=== PATIENT | male | born 1990 | race Hispanic/Latino ===

== ENCOUNTER 2020-03-13 04:08 | Emergency (ER) | payer SELFPAY ==
[2020-03-13 04:37] LABS: Absolute Lymphocytes (CBC) 2.5 K/uL (0.7-4.9); Basophils % 0.6 % (0-1.3); Hematocrit 41.7 % (39.6-49.0); MPV 9.3 fL (7.6-11.3); RBC Red Blood Cell Count 5.11 M/uL (4.33-5.43)
[2020-03-13] MEDS ORDERED: ASPIRIN EC 81 MG TAB PO ONE (04:48)
[2020-03-13] MEDS ORDERED: NA CHLORIDE 0.9% 1,000 ML ONE (04:48)
[2020-03-13 05:01] LABS: ALT/SGPT 43 U/L (12-78); AST/SGOT 17 U/L (15-37); Albumin 3.8 g/dL (3.4-5.0); Alkaline Phosphatase 101 U/L (45-117); BUN Blood Urea Nitrogen 9 mg/dL (7-18); Bicarbonate 24 mmol/L (21-32); Bilirubin Direct < 0.1 mg/dL (0-0.2); Bilirubin Total 0.2 mg/dL (0.2-1.0); Glucose Level 110 mg/dL (74-106); NT PRO-BNP 75 pg/mL (<125); Potassium 3.5 mmol/L (3.5-5.1); Protein, Total 7.8 g/dL (6.4-8.2); Sodium Level 140 mmol/L (136-145); Troponin (Emerg Dept Use Only) < 0.02 ng/mL (0.0-0.045)
--- NOTE | 2020-03-13 05:03 | EDPHYS ---
Physician Documentation [facility] Name: Jorge Paredes Age: 30 yrs Sex: Male : 1990 Arrival Date: 03/13/2020 Time: 04:10 Bed 7 Private MD: ED Physician Levi Jorgensen HPI: 03/13 04:31 This 30 yrs old Male presents to ER via EMS with complaints of CP AND ANXIOUS. kip 04:31 The patient presents to the emergency department with anxiety. Onset: The kip symptoms/episode began/occurred just prior to arrival. Past psychiatric history: Prior diagnosis: no previous psychiatric diagnosis known. The patient or guardian reports chest pain that is located primarily in the anterior chest wall, left. PLAYING GAME ON TV, GOT ANXIOUS. The pain does not radiate. Associated signs and symptoms: The patient has no apparent associated signs or symptoms. Historical: - Allergies: 04:15 Wellbutrin; rv - Home Meds: 04:15 None [Active]; rv - PMHx: 04:15 None; rv - PSHx: 04:15 None; rv - Immunization history:: Adult Immunizations unknown. - Social history:: Smoking status: Patient uses street drugs, marijuana. - Family history:: not pertinent. ROS: 04:31 Constitutional: Negative for fever, chills, and weight loss, Eyes: Negative for injury, kip pain, redness, and discharge, ENT: Negative for injury, pain, and discharge, Neck: Negative for injury, pain, and swelling, Respiratory: Negative for shortness of breath, cough, wheezing, and pleuritic chest pain, Abdomen/GI: Negative for abdominal pain, nausea, vomiting, diarrhea, and constipation, Back: Negative for injury and pain, : Negative for injury, bleeding, discharge, and swelling, MS/Extremity: Negative for injury and deformity, Skin: Negative for injury, rash, and discoloration, Neuro: Negative for headache, weakness, numbness, tingling, and seizure, Psych: Negative for depression, anxiety, suicide ideation, homicidal ideation, and hallucinations, Allergy/Immunology: Negative for hives, rash, and allergies, Endocrine: Negative for neck swelling, polydipsia, polyuria, polyphagia, and marked weight changes, Hematologic/Lymphatic: Negative for swollen nodes, abnormal bleeding, and unusual bruising. 04:31 Cardiovascular: Positive for chest pain. Exam: 04:31 Constitutional: This is a well developed, well nourished patient who is awake, alert, kip and in no acute distress. Head/Face: Normocephalic, atraumatic. Eyes: Pupils equal round and reactive to light, extra-ocular motions intact. Lids and lashes normal. Conjunctiva and sclera are non-icteric and not injected. Cornea within normal limits. Periorbital areas with no swelling, redness, or edema. ENT: Nares patent. No nasal discharge, no septal abnormalities noted. Tympanic membranes are normal and external auditory canals are clear. Oropharynx with no redness, swelling, or masses, exudates, or evidence of obstruction, uvula midline. Mucous membranes moist. Neck: Trachea midline, no thyromegaly or masses palpated, and no cervical lymphadenopathy. Supple, full range of motion without nuchal rigidity, or vertebral point tenderness. No Meningismus. Chest/axilla: Normal chest wall appearance and motion. Nontender with no deformity. No lesions are appreciated. Cardiovascular: Regular rate and rhythm with a normal S1 and S2. No gallops, murmurs, or rubs. Normal PMI, no JVD. No pulse deficits. Respiratory: Lungs have equal breath sounds bilaterally, clear to auscultation and percussion. No rales, rhonchi or wheezes noted. No increased work of breathing, no retractions or nasal flaring. Abdomen/GI: Soft, non-tender, with normal bowel sounds. No distension or tympany. No guarding or rebound. No evidence of tenderness throughout. Back: No spinal tenderness. No costovertebral tenderness. Full range of motion. Skin: Warm, dry with normal turgor. Normal color with no rashes, no lesions, and no evidence of cellulitis. MS/ Extremity: Pulses equal, no cyanosis. Neurovascular intact. Full, normal range of motion. Neuro: Awake and alert, GCS 15, oriented to person, place, time, and situation. Cranial nerves II-XII grossly intact. Motor strength 5/5 in all extremities. Sensory grossly intact. Cerebellar exam normal. Normal gait. Psych: Awake, alert, with orientation to person, place and time. Behavior, mood, and affect are within normal limits. 04:31 Musculoskeletal/extremity: DVT Exam: No signs of deep vein thrombosis. no pain, no swelling, no tenderness, negative Homans' sign noted on exam, no appreciated bluish discoloration, no erythema, no increased warmth. 04:38 ECG was reviewed by the Attending Physician. [facility] Vital Signs: 04:10 BP 129 / 82; Pulse 102; Resp 18; Temp 98.8; Pulse Ox 98% ; Weight 117.93 kg; Height 6 rv ft. 1 in. (185.42 cm); Pain 0/10; 05:15 BP 139 / 78; Pulse 88; Resp 20; Pulse Ox 100% on R/A; lp1 04:10 Body Mass Index 34.30 (117.93 kg, 185.42 cm) rv MDM: 04:11 Patient medically screened. kip 04:33 Differential diagnosis: drug withdrawal. acute psychotic break, depression, abnormal [facility] EKG, acute myocardial infarction, acute pericarditis, anxiety, chest wall pain, congestive heart failure cholecystitis, Cholelithiasis. Differential Diagnosis. HEART Score: History: Slightly Suspicious (0), ECG: Normal (0), Age: < or = 45 years (0), Risk Factors: No Risk Factors Known (0), Troponin: < or = 1 x Normal Limit (0). The patient's deep vein thrombosis risk score was calculated as follows: Total Score: 0. This patient was found to be at low risk for a deep vein thrombosis by using the Well's assessment criteria. The patient's pulmonary embolism risk score was calculated as follows: Total Score: 0-2 points. This patient was found to be at low risk for a pulmonary embolism by using the Well's assessment criteria. SERAFIN Risk Score: TOTAL SCORE = 0. Data reviewed: vital signs, nurses notes, lab test result(s), EKG, radiologic studies, plain films. Data interpreted: adobe architect: rate is 102 beats/min, rhythm is regular, Pulse oximetry: on room air is 98 %. Test interpretation: by ED physician or midlevel provider: ECG, plain radiologic studies. Counseling: I had a detailed discussion with the patient and/or guardian regarding: the historical points, exam findings, and any diagnostic results supporting the discharge/admit diagnosis, lab results, radiology results, the need for outpatient follow up, for definitive care, a lumber material handler, a family practitioner. 03/13 04:12 Order name: Basic Metabolic Panel [facility] 03/13 04:12 Order name: CBC with Diff; Complete Time: 05:02 [facility] 03/13 04:12 Order name: LFT's [facility] 03/13 04:12 Order name: Magnesium; Complete Time: 05:02 [facility] 03/13 04:12 Order name: NT PRO-BNP; Complete Time: 05:02 [facility] 03/13 04:12 Order name: Troponin (emerg Dept Use Only); Complete Time: 05:02 [facility] 03/13 04:12 Order name: XRAY Chest (1 view) [facility] 03/13 04:12 Order name: EKG; Complete Time: 04:13 [facility] 03/13 04:12 Order name: UDS [facility] 03/13 04:13 Order name: Basic Metabolic Panel; Complete Time: 05:02 EDMS 03/13 04:13 Order name: Liver (Hepatic) Function; Complete Time: 05:02 EDDE 03/13 05:13 Order name: Urine Dipstick--Ancillary (enter results) 03/13 04:12 Order name: Cardiac monitoring; Complete Time: 04:29 [facility] 03/13 04:12 Order name: EKG - Nurse/Tech; Complete Time: 04:39 [facility] 03/13 04:12 Order name: IV Saline Lock; Complete Time: 04:39 [facility] 03/13 04:12 Order name: Labs collected and sent; Complete Time: 04:39 [facility] 03/13 04:12 Order name: O2 Per Protocol; Complete Time: 04:39 [facility] 03/13 04:12 Order name: O2 Sat Monitoring; Complete Time: 04:39 [facility] EC:38 Rate is 91 beats/min. Rhythm is regular. QRS [place] is Normal. ND interval is normal. QRS kip interval is normal. QT interval is normal. No Q waves. T waves are Normal. No ST changes noted. Clinical impression: NSR w/ Non-specific ST/T Changes and No evidence of ischemia. Interpreted by me. Reviewed by me. Administered Medications: 04:39 Drug: Aspirin 81 mg Route: PO; lp1 05:22 Follow up: Response: No adverse reaction lp1 04:39 Drug: NS 0.9% 1000 ml Route: IV; Rate: 125 ml/hr; Site: right antecubital; lp1 05:32 Follow up: IV Status: IV converted to saline lock lp1 Disposition: 03/13/20 05:03 Discharged to Home. Impression: Chest pain, unspecified, Abuse of non-psychoactive substances. - Condition is Stable. - Discharge Instructions: Nonspecific Chest Pain, Nonspecific Chest Pain, [id number], Aspirin and Your Heart. - Prescriptions for Pepcid 20 mg Oral Tablet - take 1 tablet by ORAL route every 12 hours for 10 days; 20 tablet. - Medication Reconciliation Form, Thank You Letter, Antibiotic Education, Prescription Opioid Use form. - Follow up: Private Physician; When: 2 - 3 days; Reason: Recheck today's complaints, Continuance of care, Re-evaluation by your physician. Follow up: Sandeep Arcos; When: 2 - 3 days; Reason: Recheck today's complaints, Continuance of care, Re-evaluation by your physician. - Problem is new. - Symptoms have improved. Signatures: Dispatcher [employer] EDDE Levi Jorgensen MD MD cha Pena, Laura, RN RN lp1 Bill Gifford RN RN rv Corrections: (The following items were deleted from the chart) 05:32 05:03 03/13/2020 05:03 Discharged to Home. Impression: Chest pain, unspecified; Abuse lp1 of non-psychoactive substances. Condition is Stable. Discharge Instructions: Nonspecific Chest Pain, Nonspecific Chest Pain, [id number], Aspirin and Your Heart. Prescriptions for Pepcid 20 mg Oral Tablet - take 1 tablet by ORAL route every 12 hours for 10 days; 20 tablet. and Forms are Medication Reconciliation Form, Thank You Letter, Antibiotic Education, Prescription Opioid Use. Follow up: Private Physician; When: 2 - 3 days; Reason: Recheck today's complaints, Continuance of care, Re-evaluation by your physician. Follow up: Sandeep Arcos; When: 2 - 3 days; Reason: Recheck today's complaints, Continuance of care, Re-evaluation by your physician. Problem is new. Symptoms have improved. kip
--- NOTE | 2020-03-13 05:03 | ER ---
Nurse's Notes [facility] Name: Jorge Paredes Age: 30 yrs Sex: Male : 1990 Arrival Date: 03/13/2020 Time: 04:10 Bed 7 Private MD: Diagnosis: Chest pain, unspecified;Abuse of non-psychoactive substances Presentation: 03/13 04:10 Chief complaint: EMS states: PATIENT HAVE USED MARIJUANA SIX HOURS PRIOR TO COMPLAINING rv CHEST TIGHTNESS. WITH HISTORY OF ANXIETY AND BIPOLAR DISORDER. DENIES NAUSEA AND VOMITING. Coronavirus screen: Client denies travel out of the [place] in the last 14 days. Ebola Screen: No symptoms or risks identified at this time. Initial Sepsis Screen: Does the patient meet any 2 criteria? No. Patient's initial sepsis screen is negative. Does the patient have a suspected source of infection? No. Patient's initial sepsis screen is negative. Risk Assessment: Do you want to hurt yourself or someone else? Patient reports no desire to harm self or others. Onset of symptoms was March 13, 2020 at 03:30. 04:10 Method Of Arrival: EMS: [facility] rv 04:10 Acuity: LILLY 3 rv Triage Assessment: 04:15 General: Appears uncomfortable, Behavior is anxious. Pain: Denies pain. EENT: No signs rv and/or symptoms were reported regarding the EENT system. Neuro: Level of Consciousness is awake, alert, obeys commands, Oriented to person, place, time, situation. Cardiovascular: Rhythm is sinus tachycardia. Respiratory: Airway is patent Respiratory effort is even, unlabored, Breath sounds are clear bilaterally. Derm: Skin is healthy with good turgor. Historical: - Allergies: 04:15 Wellbutrin; rv - Home Meds: 04:15 None [Active]; rv - PMHx: 04:15 None; rv - PSHx: 04:15 None; rv - Immunization history:: Adult Immunizations unknown. - Social history:: Smoking status: Patient uses street drugs, marijuana. - Family history:: not pertinent. Screenin:16 Abuse screen: Denies threats or abuse. Denies injuries from another. Nutritional rv screening: No deficits noted. Tuberculosis screening: No symptoms or risk factors identified. Fall Risk None identified. Assessment: 04:15 General: Appears in no apparent distress. Behavior is calm, cooperative, appropriate lp1 for age. Pain: Complains of pain in back and chest Pain currently is 2 out of 10 on a pain scale. Quality of pain is described as pressure. Neuro: Level of Consciousness is awake, alert, obeys commands, Oriented to person, place, time, situation, Moves all extremities. Full function Gait is steady. Cardiovascular: Patient's skin is warm and dry. Rhythm is sinus rhythm. Respiratory: Respiratory effort is even, unlabored, Respiratory pattern is regular, symmetrical, Breath sounds are clear bilaterally. GI: Abdomen is non-distended. : No signs and/or symptoms were reported regarding the genitourinary system. EENT: No signs and/or symptoms were reported regarding the EENT system. Derm: Skin is pink, warm \T\ dry. Musculoskeletal: No deficits noted. 05:00 Reassessment: Patient appears in no apparent distress at this time. Patient is alert, lp1 oriented x 3, equal unlabored respirations, skin warm/dry/pink. Patient states feeling better. Vital Signs: 04:10 BP 129 / 82; Pulse 102; Resp 18; Temp 98.8; Pulse Ox 98% ; Weight 117.93 kg; Height 6 rv ft. 1 in. (185.42 cm); Pain 0/10; 05:15 BP 139 / 78; Pulse 88; Resp 20; Pulse Ox 100% on R/A; lp1 04:10 Body Mass Index 34.30 (117.93 kg, 185.42 cm) rv ED Course: 04:10 Patient arrived in ED. rv 04:11 Levi Jorgensen MD is Attending Physician. kip 04:14 Triage completed. rv 04:14 Anjelica Middleton, RN is Primary Nurse. lp1 04:16 Arm band placed on right wrist. Patient placed in the treatment room, on a stretcher, rv Patient notified of wait time. 04:16 Patient has correct armband on for positive identification. clinical research monitor on. Pulse rv ox on. NIBP on. 04:20 Maintain EMS IV. Dressing intact. Good blood return noted. Site clean \T\ dry. Gauge \T\ lp 1 site: 20 g in R AC. 04:28 XRAY Chest (1 view) In Process Unspecified. EDMS 04:43 Urine collected: clean catch specimen, clear. lp1 05:03 Baradhi, Sandeep, MD is Referral Physician. [facility] 05:27 No provider procedures requiring assistance completed. IV discontinued, No lp1 redness/swelling at site. Pressure dressing applied. Administered Medications: 04:39 Drug: Aspirin 81 mg Route: PO; lp1 05:22 Follow up: Response: No adverse reaction lp1 04:39 Drug: NS 0.9% 1000 ml Route: IV; Rate: 125 ml/hr; Site: right antecubital; lp1 05:32 Follow up: IV Status: IV converted to saline lock lp1 Outcome: 05:03 Discharge ordered by . [facility] 05:27 Discharged to home ambulatory. lp1 05:27 Condition: good 05:27 Discharge instructions given to patient, Instructed on discharge instructions, follow up and referral plans. Demonstrated understanding of instructions, follow-up care, Prescriptions given X 1. 05:32 Patient left the ED. lp1 Signatures: Dispatcher [employer] EDLevi Barnard MD MD cha Pena, Laura, RN RN lp1 Bill Gifford RN RN rv
[2020-03-13 05:19] LABS: Urine Blood NEGATIVE (NEG); Urine Glucose NEGATIVE (NEG); Urine Protein NEGATIVE (NEG); Urine Specific Gravity 1.025 (1.005-1.030); Urine pH 5.5 (5.0-7.0)
[2020-03-13 05:32] LABS: Barbiturates NEGATIVE (NEGATIVE); Benzodiazepines NEGATIVE (NEGATIVE); Cocaine NEGATIVE (NEGATIVE); METHAMPHETAM NEGATIVE (NEGATIVE); Methadone NEGATIVE (NEGATIVE); Opiates NEGATIVE (NEGATIVE); Phencyclidine NEGATIVE (NEGATIVE); THC Cannibis POSITIVE (NEGATIVE)
[2020-03-13 05:39] VITALS: TEMP 98.8
[2020-03-13 05:40] VITALS: BP 139/78; O2SAT 100
--- NOTE | 2020-03-13 11:51 | RAD REPORT ---
EXAM DESCRIPTION: RAD - Chest Single View - 03/13/2020 4:30 am CLINICAL HISTORY: CHEST PAIN Chest pain. COMPARISON: No comparisons FINDINGS: Portable technique limits examination quality. The lungs are grossly clear. The heart is normal in size. No displaced fractures. IMPRESSION: No acute intrathoracic process suspected.
== END 2020-03-13 05:32 | disposition home or self-care (01) ==
LOC: ER 04:08
DX: F55.8 Abuse of other non-psychoactive substances (principal); Z88.8 Allergy status to other drugs, medicaments and biological substances
CPT/HCPCS: 36415; 71045; 80048; 80076; 80307; 81003; 83735; 83880; 84484; 85025; 93005; 96360; 99284; J7030